=== PATIENT | male | born 1930 | race Caucasian/White ===

== ENCOUNTER 2018-01-24 18:45 | Observation (INO) | payer OTHER ==
[~2018-01-24] VITALS: Ht 175.3 cm; Wt 96.2 kg
[~2018-01-24 18:45] MED LIST: AMLODIPINE BESYL5 MG PO; ASPIRIN81 M2 PO; Aspirin E.C. PO; CARVEDILOL25 MG PO; CRESTOR20 MG PO; Coreg PO; FUROSEMIDE40 MG PO; GLIPIZIDE5 MG PO; ISOSORBIDE MONO60 MG PO; MONOPRIL20 MG PO; NITROFURANTOIN100 MG PO; PLAVIX75 MG PO; Plavix PO; TYLENOL EXTRA500 MG PO; XANAX0.5 MG PO; Zyvox PO
[2018-01-24 19:27] LABS: HEMATOCRIT 39.5 % (38.0-50.0); HEMOGLOBIN 12.7 G/DL (12.5-16.6); MCH 32.6 PG (29.0-34.0); MCHC 32.2 G/DL (30.0-36.0); MCV 101.3 FL (86-99); NRBC (%) 0.5 /100 WBC (0-0); PLATELET COUNT 205 K/uL (156-360); RBC DIS.WIDTH-CV 18.1 % (11.8-14.6); RBC DIS.WIDTH-SD 64.6 % (39-53); WHITE BLOOD COUNT 9.3 K/uL (4.1-10.2)
[2018-01-24 19:38] LABS: CHLORIDE 104 mEq/L (99-109); POTASSIUM 5.8 mEq/L (3.7-5.4); SODIUM 140 mEq/L (136-147)
[2018-01-24 19:40] LABS: GLUCOSE 80 mg/dL (70-99)
[2018-01-24 19:44] LABS: CREATININE 1.9 mg/dL (0.6-1.3); GFR ESTIMATE (CALCULATED) 36 mL/min/ (58.99-99999)
[2018-01-24 19:45] LABS: UREA NITROGEN (BUN) 45 mg/dL (9-23)
[2018-01-24 19:49] LABS: TROP-I INTERPRETATION NEGATIVE; TROPONIN-I 0.04 ng/mL (0.0-0.30)
[2018-01-24] MEDS ORDERED: TYLENOL EXTRA500 MG PO (20:47)
[2018-01-24] MEDS ORDERED: GARLIC100 MG PO (20:48)
[2018-01-24] MEDS ORDERED: VENTOLIN HFA18 GM IH (20:48)
[2018-01-24] MEDS ORDERED: CENTRUM SILVER1 EAC1 PO (20:48)
[2018-01-24] MEDS ORDERED: AMOXICILLIN500 MG PO (20:48)
[2018-01-24] MEDS ORDERED: LIPITOR80 MG PO (20:48)
[2018-01-24 22:34] LABS: URIC ACID 7.3 mg/dL (3.1-9.2)
[2018-01-24 23:03] LABS: APPEARANCE CLEAR ((CLEAR)); BILIRUBIN NEGATIVE; BLOOD NEGATIVE; COLOR YELLOW ((YELLOW)); GLUCOSE (STRIP) NEGATIVE; KETONES NEGATIVE; LEUKOCYTES MODERATE; NITRITE NEGATIVE; PROTEIN (STRIP) NEGATIVE; UROBILINOGEN 0.2 MG/DL (0.2-1.0)
[2018-01-24 23:06] LABS: BACTERIA RARE /HPF; EPITHELIAL CELLS RARE /HPF; HYALINE CASTS 0-5 /LPF; MUCUS TRACE /LPF; UCUL ADDED? YES
[2018-01-25 00:46] VITALS: BP 120/57
[2018-01-25 01:31] LABS: COMMENTS - BLOOD GASES A+C+; DEVICE NONREBREATHER; FI02 100 %; O2 FLOW 15 L/MIN; PCO2 > 122 mm Hg (35-45); PO2 123 mm Hg (80-100); SITE RR; TOTAL RESP RATE 27 resp/min
[2018-01-25 01:32] LABS: CARBOXY HGB 2.4 % (0-5); METHEMOGLOBIN 0.7 % (0-1.5)
[2018-01-25 01:33] LABS: pH < 6.90 (7.35-7.45)
[2018-01-25 01:49] LABS: TROP-I INTERPRETATION NEGATIVE; TROPONIN-I 0.03 ng/mL (0.0-0.30)
== END 2018-01-25 06:18 ==
LOC: EME 18:45 → EDOF 21:59 → ENRESERV 22:02 → 4SOUTH 23:39
PROVIDERS: Emergency Medicine; Hospitalist
DX: I50.23 Acute on chronic systolic (congestive) heart failure (principal); I13.0 Hypertensive heart and chronic kidney disease with heart failure and stage 1 through stage 4 chronic kidney disease, or unspecified chronic kidney disease; E11.22 Type 2 diabetes mellitus with diabetic chronic kidney disease; N18.3 Chronic kidney disease, stage 3 (moderate); E78.5 Hyperlipidemia, unspecified; I25.10 Atherosclerotic heart disease of native coronary artery without angina pectoris; I42.0 Dilated cardiomyopathy; R60.0 Localized edema; E87.5 Hyperkalemia; E11.51 Type 2 diabetes mellitus with diabetic peripheral angiopathy without gangrene; Z95.5 Presence of coronary angioplasty implant and graft; Z85.038 Personal history of other malignant neoplasm of large intestine; Z85.46 Personal history of malignant neoplasm of prostate; R09.89 Other specified symptoms and signs involving the circulatory and respiratory systems; Z95.0 Presence of cardiac pacemaker; Z86.19 Personal history of other infectious and parasitic diseases; Z88.8 Allergy status to other drugs, medicaments and biological substances; Z66 Do not resuscitate
CPT/HCPCS: 36600; 71046; 71250; 80048; 81003; 82436; 82803; 82948; 83880; 84133; 84300; 84484; 84550; 85027; 87086; 93005; 93970; 94799; G0378; J1644; J1940; J2310